=== PATIENT | female | born 1990 | race Caucasian/White ===

== ENCOUNTER 2024-04-22 20:23 | Emergency (ER) | payer SELFPAY ==
[~2024-04-22] VITALS: Ht 152.4 cm; Wt 50.0 kg
[2024-04-22 20:33] VITALS: BP 128/95; TEMP 98
[2024-04-22 21:25] VITALS: O2SAT 97
[2024-04-22 21:43] VITALS: PULSE 68; RESP 20
== END 2024-04-22 21:45 | disposition home or self-care (01) ==
LOC: ER 20:24
DX: F10.129 Alcohol abuse with intoxication, unspecified (principal); Z98.890 Other specified postprocedural states
CPT/HCPCS: 99283